=== PATIENT | male | born 1965 | race Two or more races ===

== ENCOUNTER 2017-06-21 10:27 | Emergency (ER) | payer OTHER ==
[~2017-06-21] VITALS: Ht 170.2 cm; Wt 86.2 kg
--- NOTE | 2017-06-21 10:32 | NUR ---
[facility] TO ER, FAMILY CALLED 911, C/O SEVERE RIGHT FLANK PAIN, 11/22, RADIATES TO THE BACK, WITH ASSOCIATED N/V, DIAPHORESIS
--- NOTE | 2017-06-21 10:40 | NUR ---
RAC #20 IV ACCESS BLOOD SAMPLE COLLECTED SENT TO LAB
[2017-06-21] MEDS ORDERED: ONDANSETRON HCL/PF 4 MG/2 ML VIAL ONE (10:42)
[2017-06-21] MEDS ORDERED: KETOROLAC TROMETHAMINE INJ 30 MG/ML VIAL ONE (10:42)
[2017-06-21] MEDS ORDERED: MORPHINE SULFATE INJ 4 MG/ML DISP.SYRIN ONE ×2 (10:42→13:29)
[2017-06-21 10:47] LABS: BASOPHILS % (AUTO) 0.4 % (0.0-2.0); EOSINOPHILS % (AUTO) 0.4 % (0.0-6.0); HEMATOCRIT 49 % (39-51); HEMOGLOBIN 16.7 g/dL (13.5-17.5); LYMPHOCYTES # (AUTO) 1.6 /CMM (0.8-4.8); LYMPHOCYTES % (AUTO) 14.2 % (20.0-44.0); MEAN CORPUSCULAR HGB CONC 34 g/dl (31.0-36.0); MEAN CORPUSCULAR VOLUME 84 fL (80-96); MONOCYTES # (AUTO) 0.7 /CMM (0.1-1.30); MONOCYTES % (AUTO) 5.9 % (2.0-12.0); NEUTROPHILS # (AUTO) 9.1 /CMM (1.8-8.9); NEUTROPHILS % (AUTO) 79.1 % (43.0-81.0); PLATELET COUNT (AUTO) 249 /CMM (150-450); RED BLOOD CELL COUNT(AUTO) 5.84 MIL/uL (4.5-6.0); WHITE BLOOD COUNT (AUTO) 11.4 K/uL (4.3-11.0)
[2017-06-21 10:54] LABS: CALCIUM, SERUM 9.3 mg/dL (8.5-10.1); CREATININE 1.4 mg/dL (0.6-1.3); POTASSIUM 3.8 mmol/L (3.5-5.1)
[2017-06-21] MEDS ORDERED: MORPHINE SULFATE INJ 2 MG/ML DISP.SYRIN IV ONE ×2 (11:00→13:30)
[2017-06-21] MEDS ORDERED: ONDANSETRON HCL/PF 4 MG/2 ML VIAL IVP ONE (11:00)
[2017-06-21] MEDS ORDERED: KETOROLAC TROMETHAMINE INJ 30 MG/ML VIAL IV ONE (11:00)
[2017-06-21] MEDS ORDERED: IV NS 0.9% 1,000 ML BAG IV ONE (11:00)
--- NOTE | 2017-06-21 11:06 | NUR ---
PT TAKEN TO CT
[2017-06-21] MEDS ORDERED: IV NS 0.9% 1,000 ML IV ONE (12:00)
--- NOTE | 2017-06-21 12:28 | NUR ---
URINE SAMPLE COLLECTED SENT TO LAB
[2017-06-21 12:48] LABS: APPEARANCE,URINE CLEAR (CLEAR); BILIRUBIN,URINE NEGATIVE (NEGATIVE); BLOOD, URINE 2+ Ery/uL (NEGATIVE); COLOR,URINE DARK YELLO (YELLOW); KETONES,URINE 1+ (NEGATIVE); LEUKOCYTE ESTERASE ,URINE NEGATIVE (NEGATIVE); NITRITE, URINE NEGATIVE (NEGATIVE); PROTEIN,URINE TRACE mg/dl (NEGATIVE); UGLUCOSE NEGATIVE (NEGATIVE); UROBILINOGEN,URINE 0.2 EU/dL (0.2)
[2017-06-21 13:17] LABS: WBC,URINE 0-2 /HPF (0-3)
[2017-06-21 13:18] LABS: BACTERIA,URINE Few /HPF (None Seen); SQUAMOUS EPITHELIAL CELL,UR Rare /HPF (None Seen)
--- NOTE | 2017-06-21 14:04 | NUR ---
IV removed. Catheter intact and site benign. Pressure and 4x4 applied to site. No bleeding noted.
--- NOTE | 2017-06-21 14:04 | NUR ---
Patient discharged to home in stable condition. Written and verbal after care instructions given. Patient verbalizes understanding of instruction.
[2017-06-21 14:05] VITALS: BP 115/73
== END 2017-06-21 14:10 | disposition home or self-care (01) ==
LOC: ER 10:29
DX: N20.0 Calculus of kidney (principal); R11.2 Nausea with vomiting, unspecified; I10 Essential (primary) hypertension; Z87.442 Personal history of urinary calculi
CPT/HCPCS: 36415; 80048-TC; 81000-TC; 85025-TC; A4606; J1885; J2270; J2405; J7030; Z7610

== ENCOUNTER 2019-01-15 19:57 | Emergency (ER) | payer OTHER ==
[~2019-01-15] VITALS: Ht 167.6 cm; Wt 86.2 kg
[2019-01-15] MEDS ORDERED: TDAP [DIPH/PERTUSSIS/TET] 0.5 ML VIAL IM ONE ×2 (21:30→21:32)
[2019-01-15] MEDS ORDERED: ACETAMINOPHEN 325 MG TABLET PO ONE (21:30)
[2019-01-15] MEDS ORDERED: ACETAMINOPHEN ES 500 MG TABLET ONE (21:31)
--- NOTE | 2019-01-15 21:33 | NUR ---
EVALUATED BY TRICE GUARDADO
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
--- NOTE | 2019-01-15 21:42 | NUR ---
REIMBURSEMENT COUNSELOR FOR XRAY AT BEDSIDE
--- NOTE | 2019-01-15 22:43 | NUR ---
EMT CLEANED LEFT ELBOW TO REDUCE INFECTION.
--- NOTE | 2019-01-15 22:43 | NUR ---
Patient discharged to home in stable condition. Written and verbal after care instructions given. Patient verbalizes understanding of instruction.
--- NOTE | 2019-01-15 22:43 | NUR ---
PRESCRIPTIONS GIVEN AND EXPLAINED TO PATIENT.
[2019-01-15 22:44] VITALS: BP 128/76
== END 2019-01-15 22:45 | disposition home or self-care (01) ==
LOC: ER 19:57
DX: S51.012A Laceration without foreign body of left elbow, initial encounter (principal); I10 Essential (primary) hypertension; Z87.442 Personal history of urinary calculi; W54.0XXA Bitten by dog, initial encounter; Y93.01 Activity, walking, marching and hiking; Y92.89 Other specified places as the place of occurrence of the external cause; Y99.8 Other external cause status
CPT/HCPCS: 73080-TC; 90715

== ENCOUNTER 2020-07-18 08:03 | Emergency (ER) | payer OTHER ==
[~2020-07-18] VITALS: Ht 170.2 cm; Wt 79.4 kg
--- NOTE | 2020-07-18 08:10 | NUR ---
Patient came in to the er c/o left flank pain since 6am this morning, Hx kidney stone, 11/22 PS. On room air, breathing evenly and unlabored. Connected to the monitor and pulse ox. Kept comfortable, will continue to monitor accordingly.
[2020-07-18] MEDS ORDERED: HYDROMORPHONE 1 MG/1 ML DISP.SYRIN ONE ×2 (08:23→10:46)
[2020-07-18] MEDS ORDERED: ONDANSETRON HCL/PF 4 MG/2 ML VIAL ONE (08:24)
[2020-07-18] MEDS ORDERED: TAMS-12 PO (08:26)
[2020-07-18] MEDS ORDERED: IV NS 0.9% 1,000 ML BAG IV ONE (08:30)
[2020-07-18] MEDS ORDERED: HYDROMORPHONE INJ 2 MG/ML DISP.SYRIN IV ONE (08:30)
[2020-07-18] MEDS ORDERED: ONDANSETRON HCL/PF 4 MG/2 ML VIAL IVP ONE (08:30)
--- NOTE | 2020-07-18 08:30 | NUR ---
IV access started and blood drawned and sent to lab
[2020-07-18 08:32] LABS: BASOPHILS % (AUTO) 0.5 % (0.0-2.0); EOSINOPHILS % (AUTO) 1.9 % (0.0-6.0); HEMATOCRIT 47 % (39-51); HEMOGLOBIN 15.6 g/dL (13.5-17.5); LYMPHOCYTES # (AUTO) 2.3 /CMM (0.8-4.8); LYMPHOCYTES % (AUTO) 44.6 % (20.0-44.0); MEAN CORPUSCULAR HGB CONC 33 g/dl (31.0-36.0); MEAN CORPUSCULAR VOLUME 88 fL (80-96); MONOCYTES # (AUTO) 0.4 /CMM (0.1-1.30); NEUTROPHILS # (AUTO) 2.4 /CMM (1.8-8.9); PLATELET COUNT (AUTO) 210 /CMM (150-450); RED BLOOD CELL COUNT(AUTO) 5.37 MIL/uL (4.5-6.0); WHITE BLOOD COUNT (AUTO) 5.2 K/uL (4.3-11.0)
[2020-07-18 08:39] LABS: CALCIUM, SERUM 9.3 mg/dL (8.5-10.1); CREATININE 1.1 mg/dL (0.6-1.3); POTASSIUM 3.9 mmol/L (3.5-5.1)
[2020-07-18 08:45] LABS: ALBUMIN 4.3 g/dL (3.4-5.0); BILIRUBIN,DIRECT 0.1 mg/dL (0.0-0.2); BILIRUBIN,TOTAL 0.7 mg/dL (0.2-1.0); TOTAL PROTEIN, SERUM 7.3 g/dL (6.4-8.2)
[2020-07-18] MEDS ORDERED: KETOROLAC TROMETHAMINE INJ 30 MG/ML VIAL IV ONE (09:00)
[2020-07-18] MEDS ORDERED: KETOROLAC TROMETHAMINE INJ 30 MG/ML VIAL ONE (09:02)
[2020-07-18 10:24] LABS: BILIRUBIN,URINE Negative (NEGATIVE); COLOR,URINE YELLOW (YELLOW); LEUKOCYTE ESTERASE ,URINE Negative (NEGATIVE); NITRITE, URINE Negative (NEGATIVE); PH,URINE 6.5 (5.0-8.0); PROTEIN,URINE 30 mg/dl (NEGATIVE); UGLUCOSE Negative (NEGATIVE); UROBILINOGEN,URINE 0.2 EU/dL (0.2)
[2020-07-18 10:29] LABS: BACTERIA,URINE Rare /HPF (None Seen); SQUAMOUS EPITHELIAL CELL,UR Few /HPF (None Seen); WBC,URINE NONE SEEN /HPF (0-3)
[2020-07-18] MEDS ORDERED: HYDROMORPHONE 1 MG/1 ML DISP.SYRIN IV ONE (11:00)
[2020-07-18] MEDS ORDERED: HYDR-4209 PO (11:04)
[2020-07-18 11:17] VITALS: BP 136/84
--- NOTE | 2020-07-18 11:17 | NUR ---
Patient discharged to home in stable condition. Written and verbal after care instructions given. Patient verbalizes understanding of instruction.IV removed. Catheter intact and site benign. Pressure and 4x4 applied to site. No bleeding noted.
== END 2020-07-18 11:17 | disposition home or self-care (01) ==
LOC: ER 08:04
DX: N23 Unspecified renal colic (principal); I10 Essential (primary) hypertension; Z87.442 Personal history of urinary calculi
CPT/HCPCS: 36415; 76770; 80048; 80076; 81001; 83690; 85025; 87086; 96361; 96374; 96375; 96376; 99284; J1170 ×2; J1885; J2405; J7030

== ENCOUNTER 2020-08-31 00:34 | Emergency (ER) | payer OTHER ==
[~2020-08-31] VITALS: Ht 170.2 cm; Wt 79.4 kg
[~2020-08-31 00:34] MED LIST: HYDR-4209 PO; TAMS-12 PO
--- NOTE | 2020-08-31 00:36 | NUR ---
PT AAOX4. BIBHOME C/O ABD PAIN, HX OF KIDNEY STONES, PLACED IN BED 6. ER MD AT BEDSIDE FOR EVAL. AWAITING ORDERS.
[2020-08-31] MEDS ORDERED: ONDANSETRON HCL/PF 4 MG/2 ML VIAL ONE (00:48)
[2020-08-31] MEDS ORDERED: MORPHINE SULFATE INJ 4 MG/ML DISP.SYRIN ONE (00:48)
[2020-08-31] MEDS ORDERED: KETOROLAC TROMETHAMINE 15 MG/ML VIAL ONE (00:48)
--- NOTE | 2020-08-31 00:58 | NUR ---
UNABLE TO PROVIDE URINE AT THIS TIME.
[2020-08-31] MEDS ORDERED: ONDANSETRON HCL/PF 4 MG/2 ML VIAL IVP ONE (01:00)
[2020-08-31] MEDS ORDERED: MORPHINE SULFATE INJ 2 MG/ML DISP.SYRIN IV ONE (01:00)
[2020-08-31] MEDS ORDERED: IV NS 0.9% 1,000 ML BAG IV ONE (01:00)
[2020-08-31] MEDS ORDERED: KETOROLAC TROMETHAMINE INJ 30 MG/ML VIAL IV ONE (01:00)
[2020-08-31 01:01] LABS: BASOPHILS # (AUTO) 0.1 K/uL (0.0-0.2); BASOPHILS % (AUTO) 0.9 % (0.0-2.0); EOSINOPHILS % (AUTO) 2.5 % (0.0-6.0); HEMATOCRIT 44 % (39-51); HEMOGLOBIN 14.5 g/dL (13.5-17.5); LYMPHOCYTES # (AUTO) 2.8 K/uL (0.8-4.8); LYMPHOCYTES % (AUTO) 37.6 % (20.0-44.0); MEAN CORPUSCULAR HGB CONC 33 g/dl (31.0-36.0); MEAN CORPUSCULAR VOLUME 88 fL (80-96); MONOCYTES # (AUTO) 0.6 K/uL (0.1-1.30); NEUTROPHILS # (AUTO) 3.7 K/uL (1.8-8.9); PLATELET COUNT (AUTO) 212 K/uL (150-450); RED BLOOD CELL COUNT(AUTO) 4.96 MIL/uL (4.5-6.0); WHITE BLOOD COUNT (AUTO) 7.3 K/uL (4.3-11.0)
[2020-08-31 01:09] LABS: CALCIUM, SERUM 8.6 mg/dL (8.5-10.1); CREATININE 1.3 mg/dL (0.6-1.3); POTASSIUM 3.6 mmol/L (3.5-5.1)
--- NOTE | 2020-08-31 01:57 | NUR ---
URINE SENT TO LAB
--- NOTE | 2020-08-31 01:57 | NUR ---
URINE COLLECTED, SENT TO LAB.
[2020-08-31 02:06] LABS: BILIRUBIN,URINE SMALL (NEGATIVE); COLOR,URINE YELLOW (YELLOW); LEUKOCYTE ESTERASE ,URINE NEGATIVE (NEGATIVE); NITRITE, URINE POSITIVE (NEGATIVE); PH,URINE 6.5 (5.0-8.0); PROTEIN,URINE 30 mg/dl (NEGATIVE); UGLUCOSE NEGATIVE (NEGATIVE)
[2020-08-31 02:21] LABS: BACTERIA,URINE Few /HPF (None Seen); RBC,URINE 51-80 /HPF (0-2)
[2020-08-31 02:22] LABS: SQUAMOUS EPITHELIAL CELL,UR Few /HPF (None Seen)
[2020-08-31] MEDS ORDERED: CEPH500C2 PO (02:28)
[2020-08-31] MEDS ORDERED: HYDROMORPHONE 1 MG/1 ML DISP.SYRIN IV ONE (02:30)
[2020-08-31] MEDS ORDERED: HYDROMORPHONE 1 MG/1 ML DISP.SYRIN ONE (02:30)
--- NOTE | 2020-08-31 03:11 | NUR ---
IV removed. Catheter intact and site benign. Pressure and 4x4 applied to site. No bleeding noted. Patient discharged to home in stable condition. Written and verbal after care instructions given. Patient verbalizes understanding of instruction and RX. Pt ambulated out of ED. VSS. Avtar pain.
[2020-08-31 03:12] VITALS: BP 131/76
== END 2020-08-31 03:12 | disposition home or self-care (01) ==
LOC: ER 00:36
DX: N23 Unspecified renal colic (principal); N39.0 Urinary tract infection, site not specified; I10 Essential (primary) hypertension
CPT/HCPCS: 36415; 80048; 81001; 85025; 87086; 96361; 96374; 96375; 99284; J1170; J1885; J2270; J2405; J7030

== ENCOUNTER 2021-03-13 20:01 | Emergency (ER) | payer OTHER ==
[~2021-03-13] VITALS: Ht 170.2 cm; Wt 81.6 kg
[~2021-03-13 20:01] MED LIST changes: +CEPH500C2 PO
--- NOTE | 2021-03-13 20:20 | NUR ---
bibself from home c/o left side abd pain rad to back x 3 days . PT A/OX4. TOLERATING R/A WELL WITH NO SOB. CONNECTED PT TO POX AND MONITOR. HX KIDNEY STONE
--- NOTE | 2021-03-13 20:27 | NUR ---
URINE COLLECTED AND SENT TO LAB
--- NOTE | 2021-03-13 20:33 | NUR ---
GENET PAINTER AT PT'S BEDSIDE
[2021-03-13] MEDS ORDERED: KETOROLAC TROMETHAMINE 15 MG/ML VIAL ONE (20:49)
[2021-03-13] MEDS ORDERED: ONDANSETRON HCL/PF 4 MG/2 ML VIAL ONE (20:49)
[2021-03-13] MEDS ORDERED: IV NS 0.9% 1,000 ML BAG IV ONE (21:00)
[2021-03-13] MEDS ORDERED: ONDANSETRON HCL/PF 4 MG/2 ML VIAL IVP ONE (21:00)
[2021-03-13] MEDS ORDERED: KETOROLAC TROMETHAMINE INJ 30 MG/ML VIAL IV ONE (21:00)
[2021-03-13 21:02] LABS: BASOPHILS % (AUTO) 0.7 % (0.0-2.0); EOSINOPHILS % (AUTO) 4.3 % (0.0-6.0); HEMATOCRIT 45 % (39-51); HEMOGLOBIN 15.2 g/dL (13.5-17.5); LYMPHOCYTES # (AUTO) 2.6 K/uL (0.8-4.8); LYMPHOCYTES % (AUTO) 44.3 % (20.0-44.0); MEAN CORPUSCULAR HGB CONC 34 g/dl (31.0-36.0); MEAN CORPUSCULAR VOLUME 87 fL (80-96); MONOCYTES # (AUTO) 0.4 K/uL (0.1-1.30); MONOCYTES % (AUTO) 7.5 % (2.0-12.0); NEUTROPHILS # (AUTO) 2.5 K/uL (1.8-8.9); NEUTROPHILS % (AUTO) 43.2 % (43.0-81.0); PLATELET COUNT (AUTO) 192 K/uL (150-450); RED BLOOD CELL COUNT(AUTO) 5.13 MIL/uL (4.5-6.0); WHITE BLOOD COUNT (AUTO) 5.8 K/uL (4.3-11.0)
--- NOTE | 2021-03-13 21:03 | NUR ---
LAC #18G S/L ; PATENT AND INTACT. BLOOD COLLECTED AND SENT TO LAB. IVF NS 1000ML INFUSING ORDERED
[2021-03-13 21:10] LABS: CALCIUM, SERUM 8.2 mg/dL (8.5-10.1); CREATININE 1.1 mg/dL (0.6-1.3); POTASSIUM 3.6 mmol/L (3.5-5.1)
[2021-03-13 21:16] LABS: ALBUMIN 3.6 g/dL (3.4-5.0); BILIRUBIN,DIRECT 0.1 mg/dL (0.0-0.2); BILIRUBIN,TOTAL 0.2 mg/dL (0.2-1.0); TOTAL PROTEIN, SERUM 6.6 g/dL (6.4-8.2)
[2021-03-13 21:17] LABS: BILIRUBIN,URINE NEGATIVE (NEGATIVE); COLOR,URINE YELLOW (YELLOW); LEUKOCYTE ESTERASE ,URINE NEGATIVE (NEGATIVE); NITRITE, URINE NEGATIVE (NEGATIVE); PH,URINE 5.5 (5.0-8.0); PROTEIN,URINE NEGATIVE (NEGATIVE); UGLUCOSE NEGATIVE (NEGATIVE); UROBILINOGEN,URINE 0.2 EU/dL (0.2)
[2021-03-13] MEDS ORDERED: IBUP-1955 PO (21:29)
[2021-03-13] MEDS ORDERED: CYCL5TAB PO (21:29)
[2021-03-13] MEDS ORDERED: HYDROCODONE/APAP 5/325MG TABLET ONE (21:36)
[2021-03-13 21:50] VITALS: BP 133/75
[2021-03-13] MEDS ORDERED: HYDROCODONE/APAP 5/325MG TABLET PO ONE (22:00)
== END 2021-03-13 21:50 | disposition home or self-care (01) ==
LOC: ER 20:03
DX: M54.50 Low back pain, unspecified (principal); M62.830 Muscle spasm of back; I10 Essential (primary) hypertension
CPT/HCPCS: 36415; 80048; 80076; 81003; 83690; 85025; 96361; 96374; 96375; 99284; J1885; J2405; J7030

== ENCOUNTER 2021-04-21 21:38 | Emergency (ER) | payer OTHER ==
[~2021-04-21] VITALS: Ht 170.2 cm; Wt 86.2 kg
[~2021-04-21 21:38] MED LIST changes: +CYCL5TAB PO; +IBUP-1955 PO
--- NOTE | 2021-04-21 22:45 | NUR ---
BIBS C/O LOWER BACK PAIN X1 MONTH, NOW HAS PAIN DOWN LEFT LEG. 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 PT ALERT AND ORIENTED X4 BREATHING EVEN AND UNLABORED AND ALL V/S STABLE.
[2021-04-21] MEDS ORDERED: HYDROMORPHONE 1 MG/1 ML DISP.SYRIN IM ONE (23:00)
[2021-04-21] MEDS ORDERED: DEXAMETHASONE SOD PHOSPHATE 4 MG/ML VIAL IM ONE (23:00)
[2021-04-21] MEDS ORDERED: CARISOPRODOL 350 MG TABLET PO ONE (23:00)
[2021-04-21] MEDS ORDERED: DEXAMETHASONE SOD PHOSPHATE 10 MG/ML VIAL ONE (23:05)
[2021-04-21] MEDS ORDERED: CARISOPRODOL 350 MG TABLET ONE (23:05)
[2021-04-21] MEDS ORDERED: HYDROMORPHONE 1 MG/1 ML DISP.SYRIN ONE (23:05)
[2021-04-21] MEDS ORDERED: PRED50TA PO (23:17)
[2021-04-21] MEDS ORDERED: CARI350T PO (23:17)
[2021-04-21 23:23] VITALS: BP 145/78
--- NOTE | 2021-04-21 23:23 | NUR ---
Patient discharged to home in stable condition. Written and verbal after care instructions given. Patient verbalizes understanding of instruction.
== END 2021-04-21 23:23 | disposition home or self-care (01) ==
LOC: ER 21:59
DX: M54.42 Lumbago with sciatica, left side (principal); I10 Essential (primary) hypertension; Z87.442 Personal history of urinary calculi; Z88.6 Allergy status to analgesic agent; Z79.52 Long term (current) use of systemic steroids; Z79.1 Long term (current) use of non-steroidal anti-inflammatories (NSAID); Z79.891 Long term (current) use of opiate analgesic; Z79.899 Other long term (current) drug therapy
CPT/HCPCS: 96372 ×2; 99284; J1100; J1170

== ENCOUNTER 2021-04-25 23:01 | Emergency (ER) | payer OTHER ==
[~2021-04-25] VITALS: Ht 170.2 cm; Wt 86.2 kg
[~2021-04-25 23:01] MED LIST changes: +CARI350T PO; +PRED50TA PO
--- NOTE | 2021-04-25 23:30 | NUR ---
BIBRA60 FROM HOME FOR C/O L SIDED BACKACHE RADIATING TO LLE X 5 DAYS HX OF SCIATICA. PT ORIENTED X 4 BREATHING EVEN AND UNLABORED. PLACED ON MONITOR AND V/S STABLE.
[2021-04-26] MEDS ORDERED: HYDROMORPHONE 1 MG/1 ML DISP.SYRIN IM ONE (00:30)
[2021-04-26] MEDS ORDERED: CARISOPRODOL 350 MG TABLET PO ONE (00:30)
[2021-04-26] MEDS ORDERED: DEXAMETHASONE SOD PHOSPHATE 4 MG/ML VIAL IM ONE (00:30)
[2021-04-26] MEDS ORDERED: HYDROMORPHONE 1 MG/1 ML DISP.SYRIN ONE (01:22)
[2021-04-26] MEDS ORDERED: DEXAMETHASONE SOD PHOSPHATE 10 MG/ML VIAL ONE (01:22)
[2021-04-26] MEDS ORDERED: CARISOPRODOL 350 MG TABLET ONE (01:22)
[2021-04-26] MEDS ORDERED: ONDA4TAB5 PO (03:59)
--- NOTE | 2021-04-26 04:19 | NUR ---
Patient discharged to home in stable condition. Written and verbal after care instructions given. Patient verbalizes understanding of instruction.
[2021-04-26 04:26] VITALS: BP 129/57
== END 2021-04-26 04:26 | disposition home or self-care (01) ==
LOC: ER 23:02
DX: M51.26 Other intervertebral disc displacement, lumbar region (principal); M54.42 Lumbago with sciatica, left side; I10 Essential (primary) hypertension; Z88.6 Allergy status to analgesic agent; Z79.899 Other long term (current) drug therapy
CPT/HCPCS: 72131; 96372 ×2; 99284; J1100; J1170

== ENCOUNTER 2022-01-02 06:08 | Emergency (ER) | payer OTHER ==
[~2022-01-02] VITALS: Ht 162.6 cm; Wt 86.2 kg
[~2022-01-02 06:08] MED LIST changes: +ONDA4TAB5 PO
--- NOTE | 2022-01-02 06:21 | NUR ---
TO ER BED 11. BIBRA60 FROM HOME C/O FEVER X DAYS. NOT RELIEVED BY OTC MEDS. PT IS ALERT AND ORIENTED. RR EVEN AND NONLABORED. CONNECTED TO POX AND HEART MONITOR. AWAITING MD TANNER
[2022-01-02] MEDS ORDERED: ACETAMINOPHEN ES 500 MG TABLET PO ONE (06:30)
[2022-01-02] MEDS ORDERED: IV NS 0.9% 1,000 ML BAG IV ONE (06:30)
--- NOTE | 2022-01-02 06:30 | NUR ---
SECURED IV LINE; L HAND#22; PATENT, INTACT AND FLUSHING WELL
--- NOTE | 2022-01-02 06:32 | NUR ---
COVID AND INFLUENZA SWAB COLLECTED AND SENT TO LAB
[2022-01-02] MEDS ORDERED: ACETAMINOPHEN ES 500 MG TABLET ONE (06:33)
[2022-01-02 06:55] LABS: BASOPHILS % (AUTO) 0.2 % (0.0-2.0); EOSINOPHILS % (AUTO) 0.1 % (0.0-6.0); HEMATOCRIT 46 % (39-51); HEMOGLOBIN 15.5 g/dL (13.5-17.5); LYMPHOCYTES # (AUTO) 0.8 K/uL (0.8-4.8); LYMPHOCYTES % (AUTO) 10.7 % (20.0-44.0); MEAN CORPUSCULAR HGB CONC 34 g/dl (31.0-36.0); MEAN CORPUSCULAR VOLUME 86 fL (80-96); MONOCYTES # (AUTO) 0.6 K/uL (0.1-1.30); MONOCYTES % (AUTO) 8.4 % (2.0-12.0); NEUTROPHILS # (AUTO) 5.7 K/uL (1.8-8.9); NEUTROPHILS % (AUTO) 80.6 % (43.0-81.0); PLATELET COUNT (AUTO) 160 K/uL (150-450); RED BLOOD CELL COUNT(AUTO) 5.38 MIL/uL (4.5-6.0); WHITE BLOOD COUNT (AUTO) 7.1 K/uL (4.3-11.0)
--- NOTE | 2022-01-02 07:10 | NUR ---
URINE SENT TO LAB
[2022-01-02 07:40] LABS: BILIRUBIN,URINE NEGATIVE (NEGATIVE); COLOR,URINE YELLOW (YELLOW); LEUKOCYTE ESTERASE ,URINE NEGATIVE (NEGATIVE); NITRITE, URINE NEGATIVE (NEGATIVE); PROTEIN,URINE NEGATIVE (NEGATIVE); UGLUCOSE NEGATIVE (NEGATIVE); UROBILINOGEN,URINE 0.2 EU/dL (0.2)
[2022-01-02 08:22] LABS: BACTERIA,URINE Few /HPF (None Seen); RBC,URINE 0-2 /HPF (0-2); SQUAMOUS EPITHELIAL CELL,UR 0-2 /HPF (None Seen); WBC,URINE 0-2 /HPF (0-3)
[2022-01-02 08:30] LABS: CALCIUM, SERUM 8.5 mg/dL (8.5-10.1); CARBON DIOXIDE 25 mmol/L (21-32); CREATININE 1.1 mg/dL (0.6-1.3); GLUCOSE 110 mg/dL (74-106); POTASSIUM 3.7 mmol/L (3.5-5.1); SODIUM SERUM 141 mmol/L (136-145); UREA NITROGEN, BLOOD 12 mg/dL (7-18)
[2022-01-02 08:36] LABS: ALANINE AMINOTRANSFERASE 26 U/L (12-78); ALKALINE PHOSPHATASE 53 U/L (46-116); ASPARTATE AMINOTRANSFERASE 16 U/L (15-37); BILIRUBIN,DIRECT 0.1 mg/dL (0.0-0.2); BILIRUBIN,TOTAL 0.4 mg/dL (0.2-1.0); TOTAL PROTEIN, SERUM 7.3 g/dL (6.4-8.2)
--- NOTE | 2022-01-02 08:50 | NUR ---
IV removed. Catheter intact and site benign. Pressure and 4x4 applied to site. No bleeding noted.
--- NOTE | 2022-01-02 08:50 | NUR ---
Patient discharged to home in stable condition. Written and verbal after care instructions given. Patient verbalizes understanding of instruction.
[2022-01-02 08:51] VITALS: BP 130/72
== END 2022-01-02 08:51 | disposition home or self-care (01) ==
LOC: ER 06:19
DX: U07.1 COVID-19 (principal); I10 Essential (primary) hypertension; Z87.442 Personal history of urinary calculi; Z88.6 Allergy status to analgesic agent
CPT/HCPCS: 99284; 71045; 87426; 87804; 85025; 80048; 80076; 81001; 36415; J7030; C9803